=== PATIENT | male | born 1955 | race Caucasian/White ===

== ENCOUNTER 2024-11-11 06:32 | Day surgery (SDC) | payer OTHER ==
[2024-11-07 10:06] VITALS: BMI 28.5
[2024-11-11 09:34] LABS: ABSOLUTE IMMATURE GRANULOCYTES 0.01 x10^3/uL (0.0-0.031); BASOPHILS # 0.01 x10^3/uL (0.01-0.08); EOSINOPHIL % 0.7 % (0.8-7.0); EOSINOPHILS # 0.02 x10^3/uL (0.04-0.54); HEMATOCRIT 36.6 % (40.1-51.0); HEMOGLOBIN 12.1 g/dL (13.7-17.5); MCHC 33.1 g/dl (32.3-36.5); MONOCYTE # 0.15 x10^3/uL (0.30-0.82); MONOCYTE % 5.2 % (5.3-12.2); PLATELET COUNT 39 x10^3/uL (163-337); RDW 14.6 % (12.2-16.4)
[2024-11-11 09:37] VITALS: RESP 16
[2024-11-11 09:42] LABS: INR 1.08 (0.83-1.09); PROTHROMBIN TIME (PATIENT) 11.9 SEC (9.7-13.0)
[2024-11-11 11:42] VITALS: BP 128/78; PULSE 80; TEMP 97.8
[2024-11-11] MEDS ORDERED: SODIUM CHLORIDE 500 ML IV ONE (12:00)
[2024-11-11] MEDS: FENTANYL CITRATE/PF 50 MCG/ML VIAL IVPUSH ONE (12:19)
== END 2024-11-11 12:00 | disposition home or self-care (01) ==
LOC: JRADIR 06:32
PROVIDERS: ATTEND Internal Medicine Hematology & Oncology
PROC: 07DT3ZX Extraction of Bone Marrow, Percutaneous Approach, Diagnostic (ICD-10-PCS; principal; 2024-11-11)
PROC: 079T3ZX Drainage of Bone Marrow, Percutaneous Approach, Diagnostic (ICD-10-PCS; 2024-11-11)
DX: M85.88 Other specified disorders of bone density and structure, other site (principal)
CPT/HCPCS: 20225; 36415; 77012-TC; 85025; 85610; 88300-TC